=== PATIENT | male | born 1955 | race Caucasian/White ===

== ENCOUNTER 2018-11-02 16:30 | Inpatient (IN) | payer MEDICARE, OTHER ==
[~2018-11-02] VITALS: Ht 165.1 cm; Wt 87.7 kg
[2018-11-05 18:18] VITALS: BMI 30.4
[2018-11-05] MEDS ORDERED: LISI10TA2 PO (18:18)
[2018-11-05] MEDS ORDERED: ZOLP10TA PO (18:18)
[2018-11-05] MEDS ORDERED: CRES20 PO (18:18)
[2018-11-05] MEDS ORDERED: AMLO5TAB4 PO (18:18)
[2018-11-05] MEDS ORDERED: SERT50TA PO (18:18)
[2018-11-08] VITALS (13 sets, daily range): BP systolic 96–152; BP diastolic 55–89; PULSE 62–88; RESP 16–26; Ht 165.1 cm; Wt 87.7 kg
[2018-11-08] MEDS ORDERED: GABA-526 PO (14:04)
--- NOTE | 2018-11-08 16:23 | HPN ---
Date/Time of Note Date/Time of Note DATE: 11/08/18 TIME: 16:23 Interval H&P Admission Note Pt. seen H&P reviewed: No system changes VERÓNICA SUAZO PA-C November 08, 2018 16:23
[2018-11-08] MEDS ORDERED: DIPHENHYDRAMINE 25 MG CAP PO PRN (16:30)
[2018-11-08] MEDS ORDERED: NALOXONE (0.4 MG/ML) INJ IV PRN (16:30)
[2018-11-08] MEDS ORDERED: ONDANSETRON 4 MG INJ IV PRN ×2 (16:30→17:00)
[2018-11-08] MEDS ORDERED: ZOLPIDEM 5 MG TAB PO PRN (16:30)
[2018-11-08] MEDS ORDERED: HYDROmorphONE 0.5 MG/0.5 ML SYG IV PRN (16:30)
[2018-11-08] MEDS: CEFAZOLIN 1 GM/50 ML (PMX) 50 ML IVPB SCH ×2 (16:30→23:29)
[2018-11-08] MEDS ORDERED: ACETAMINOPHEN 325 MG TAB PO PRN (16:30)
[2018-11-08] MEDS ORDERED: BISACODYL 10 MG SUPP PR PRN (16:30)
[2018-11-08] MEDS ORDERED: CYCLOBENZAPRINE 10 MG TAB PO PRN (16:30)
[2018-11-08] MEDS ORDERED: CEPASTAT LOZENGE MT PRN (16:30)
[2018-11-08] MEDS ORDERED: DIPHENHYDRAMINE 50 MG INJ IV PRN ×2 (16:30→17:00)
[2018-11-08] MEDS ORDERED: AL HYDROX/MG HYDROX/SIMETH 30 ML CUP PO PRN (16:30)
[2018-11-08] MEDS ORDERED: OXYCODONE/ACETAMINOPHEN (10/325) TAB PO PRN (16:30)
[2018-11-08] MEDS ORDERED: GELATIN SIZE 100 SPONGE ONE (16:39)
[2018-11-08] MEDS ORDERED: THROMBIN 5000 UNIT VIAL ONE (16:39)
[2018-11-08] MEDS ORDERED: POLYMYXIN/BACITRACIN 1L IRRIG ONE (16:39)
[2018-11-08] MEDS ORDERED: CA CHLORIDE 10% 10 ML SYRINGE ONE (16:39)
[2018-11-08] MEDS ORDERED: HEPARIN 1000 UNITS/ML 10 ML INJ ONE (16:39)
[2018-11-08] MEDS ORDERED: BUPIVACAINE 0.25%/EPI (SDV) 30 ML INJ ONE (16:39)
--- NOTE | 2018-11-08 16:54 | PREAC ---
Date/Time of Note Date/Time of Note DATE: 11/08/18 TIME: 16:52 Anesthesia Eval and Record Evaluation Time Pre-Procedure Interview DATE: 11/08/18 TIME: 16:52 Age 62 Sex male NPO: 8 hrs Preoperative diagnosis Rt L4-L5 radiculopathy Planned procedure L4-L5 Decompression Past Medical History Past Medical History: Includes Cardio: HTN, Dyslipidemia GI: Morbid obesity Surgery & Anesthesia Issues No known issue Meds Anticoagulation: No Beta Negar within 24 hr: No Reason Beta Negar not given: Pt. not on B-Negar Reported Medications Gabapentin* (Gabapentin*) 600 Mg Tablet, 600 MG PO QHS, #60 TAB 11/08/18 Zolpidem Tartrate* (Ambien*) 10 Mg Tablet, 15 MG PO QHS PRN for INSOMNIA, TAB 11/05/18 Sertraline Hcl* (Zoloft*) 50 Mg Tablet, 75 MG PO DAILY, #30 TAB 11/05/18 Rosuvastatin Calcium* (Crestor*) 20 Mg Tablet, 20 MG PO QHS, #30 TAB 11/05/18 Lisinopril* (Lisinopril*) 10 Mg Tablet, 10 MG PO QHS, #30 TAB 11/05/18 Amlodipine Besylate* (Norvasc*) 5 Mg Tablet, 5 MG PO QHS, TAB 11/05/18 Current Medications Potassium Chloride/Dextrose/ Sod Cl 1,000 ml @ 100 mls/hr Q10H IV ; Start 11/08/18 at 16:23 Oxycodone/ Acetaminophen (Endocet (10/ 325)) 1 tab Q4H PRN PO .PAIN 5-10; Start 11/08/18 at 16:30 Oxycodone/ Acetaminophen (Endocet (10/ 325)) 2 tab Q4H PRN PO .PAIN 6-10; S tart 11/08/18 at 16:30 Hydromorphone HCl (Dilaudid) 0.2 mg Q1H PRN IV .BREAKTHROUGH PAIN; Start 11/08/18 at 16:30 Cefazolin Sodium 50 ml @ 100 mls/hr Q8H IVPB ; Start 11/08/18 at 16:30; Stop 11/09/18 at 08:59 Zolpidem Tartrate (Ambien) 10 mg HS PRN PO .INSOMNIA; Start 11/08/18 at 16:30 Ondansetron HCl (Zofran Inj) 4 mg Q6H PRN IV NAUSEA/VOMITING; Start 11/08/18 at 16:30 Bisacodyl (Dulcolax Supp) 10 mg DAILY PRN [place] .CONSTIPATION; Start 11/08/18 at 16:30 Docusate Sodium (Colace) 100 mg BID PO ; Start 11/08/18 at 21:00 Al Hydrox/Mg Hydrox/Simethicone (Mag-Al Plus) 15 ml Q6H PRN PO .CONSTIPATION/DYSPEPSIA; Start 11/08/18 at 16:30 Acetaminophen (Tylenol Tab) 650 mg Q4H PRN PO MCGOVERN OR TEMP GREATER THAN 101.3F; Start 11/08/18 at 16:30 Cyclobenzaprine HCl (Flexeril) 10 mg TID PRN PO .MUSCLE SPASMS; Start 11/08/18 at 16:30 Phenol (Cepastat Lozenge) 1 lozenge PRN PRN [place] .SORE THROAT; Start 11/08/18 at 16:30 Diphenhydramine HCl (Benadryl) 25 mg Q6H PRN PO .ITCHING; Start 11/08/18 at 16:30 Diphenhydramine HCl (Benadryl) 25 mg Q6H PRN IV .ITCHING; Start 11/08/18 at 16:30 Naloxone HCl (Narcan) 0.2 mg Q2M PRN IV .RR 8 BREATHS/MIN OR LESS; Start 11/08/18 at 16:30 Hydromorphone HCl (Dilaudid LAST INSERTER) LAST INSERTER to be started in PACU Q4PCA IV ; Start 11/08/18 at 16:30 Miscellaneous Information 1. Hold LAST INSERTER at 1,000... LAST INSERTER IV ; Start 11/08/18 at 16:30 Gabapentin (Neurontin) 600 mg HS PO ; Start 11/08/18 at 21:00 Meds reviewed: Yes Allergies Coded Allergies: No Known Allergy (Unverified , 11/08/18) Allergies Reviewed: Yes Labs/Studies Labs Reviewed: Reviewed by anesthesiologist test: N/A Studies: ECG Pre-procedure Exam Last vitals Vital Signs Date Temp Pulse Resp B/P (MAP) Pulse Ox O2 O2 Flow FiO2 Time Delivery Rate 11/08/18 97.8 62 16 114/84 94 Room Air 14:51 (94) Airway: Adequate mouth opening, Adequate thyromental dist Mallampati: Mallampati II Teeth: Normal Lung: Normal Heart: Normal ASA Physical Status ASA physical status: 3 Emergency: None Planned Anesthetic General/MAC: ETT Planned Pain Management Parenteral pain med Pre-operative Attestations Prior to commencing anesthesia and surgery, the patient was re-evaluated, there was verification of: *The patient's identity *The results of appropriate recent lab work and preoperative vital signs *The above evaluation not changing prior to induction *Anesthetic plan, risk benefits, alternative and complications discussed with patient/family; questions answered; patient/family understands, accepts and wishes to proceed. ZARIA ALFARO MD November 08, 2018 16:54
[2018-11-08] MEDS ORDERED: LABETALOL HCL 20MG INJ IV PRN (17:00)
[2018-11-08] MEDS ORDERED: FENTAnyl 50 MCG/ML VIAL IV PRN (17:00)
[2018-11-08] MEDS ORDERED: METOCLOPRAMIDE 10 MG INJ IV PRN (17:00)
[2018-11-08] MEDS ORDERED: MEPERIDINE 25 MG INJ IV PRN (17:00)
[2018-11-08] MEDS ORDERED: hydrALAzine 20 MG INJ IV PRN (17:00)
[2018-11-08] MEDS ORDERED: LIDOCAINE 2% (SDV) 5 ML INJ ONE (17:00)
[2018-11-08] MEDS ORDERED: ROCURONIUM 50 MG INJ ONE ×2 (17:00→19:07)
[2018-11-08] MEDS ORDERED: HYDROmorphONE 1 MG/5 ML IV SYRINGE IV PRN (17:00)
[2018-11-08] MEDS ORDERED: MIDAZOLAM 1 MG/ML 2 ML INJ ONE (17:07)
[2018-11-08] MEDS ORDERED: GLYCOPYRROLATE 0.4 MG INJ ONE (19:07)
[2018-11-08] MEDS ORDERED: NEOSTIGMINE 3 MG/3 ML SYRINGE ONE (19:07)
[2018-11-08] MEDS ORDERED: ETOMIDATE 20 MG INJ ONE (19:07)
[2018-11-08] MEDS ORDERED: PROPOFOL 20 ML ONE (19:07)
[2018-11-08] MEDS ORDERED: CEFAZOLIN 1 GM INJ ONE (19:08)
--- NOTE | 2018-11-08 19:14 | SIPON ---
Date/Time of Note Date/Time of Note DATE: 11/08/18 TIME: 19:13 Operative Report Preoperative Diagnosis Right L4-5 disc herniation Postoperative Diagnosis Right L4-5 disc herniation Operation/Procedure Performed Right L4-5 discectomy Surgeon see signature line food trades assistants Bibiana Umaña Anesthesia: general Estimated blood loss: 10 - 50 ml's Transfusion Required none Specimen Disc Grafts/Implants none Complications none MELINA FRASER MD November 08, 2018 19:14
--- NOTE | 2018-11-08 19:32 | PAC ---
Date/Time of Note Date/Time of Note DATE: 11/08/18 TIME: 19:30 Post-Anesthesia Notes Post-Anesthesia Note Last documented vital signs Vital Signs Date Temp Pulse Resp B/P (MAP) Pulse Ox O2 O2 Flow FiO2 Time Delivery Rate 11/08/18 98.8 19:27 11/08/18 62 16 114/84 94 Room Air 14:51 (94) Activity: WNL Respiratory function: WNL Cardiovascular function: WNL Mental status: Baseline Pain reasonably controlled: Yes Hydration appropriate: Yes Nausea/Vomiting absent: Yes Comments BP:112/56, P:88, Spo2:100%, T:98,8 ZARIA ALFARO MD November 08, 2018 19:32
[2018-11-08] MEDS: HYDROmorphONE 0.2 MG/ML PCA IV SCH (19:37)
[2018-11-08] MEDS: HYDROmorphONE 1 MG/5 ML IV SYRINGE IV PRN ×2 (19:39→19:54)
--- NOTE | 2018-11-08 20:12 | OPR ---
DATE OF OPERATION: 11/08/2018 PREOPERATIVE DIAGNOSES: Right L4 to L5 disk herniation with inferior migration, radiculopathy. POSTOPERATIVE DIAGNOSES: Right L4 to L5 disk herniation with inferior migration, radiculopathy. PROCEDURES: 1. Right L4 to L5 hemilaminotomy, partial medial facetectomy, foraminotomy. 2. Right L4 to L5 lumbar microdiskectomy. 3. Use of C-arm fluoroscopy with interpretation without radiologist present. 4. Use of operative microscope. 5. Intraoperative neuromonitoring. PRIMARY SURGEON: Farzad Renner MD TEACHER EDUCATION DIRECTOR: Bibiana Umaña PA-C NEED FOR SLIVER FORMER: During this spinal surgical procedure, my printer assistant was used to retract and protect the spinal nerves and dural sac. My printer assistant also employed the suction catheters to ev acuate blood from the surgical field to improve visualization of the neural structures. The assistan t was medically necessary to facilitate the completion of the surgery in a safe and expeditious [facility] r. [facility] regulations, as well as hospital bylaws, preclude the use of non-licensed the [facility] care personnel, such as operating room technicians, to perform these functions. FINDINGS: Neuromonitoring at the start of the case revealed right L5 amplitude down 60%. At the end of the case, nerve signals returned to normal. ESTIMATED BLOOD LOSS: 30 mL. DRAINS: None. SPECIMENS: L4 to L5 disk. COMPLICATIONS OF PROCEDURES: None. ANESTHESIOLOGIST: Ambrocio Suárez MD TYPE OF ANESTHESIA: General. INDICATIONS FOR PROCEDURE: This is a 62-year-old gentleman with right lumbar radiculopathy in settin g of an extruded fragment at L4 to L5 with inferior migration. He failed nonoperative measures; ther efore, I recommended that he undergo the above procedure. Preoperatively, we discussed risks, benefi ts and alternatives. He understood and wished to proceed. DESCRIPTION OF PROCEDURE IN DETAIL: The patient was identified in the preoperative holding area, giv en Ancef antibiotic, taken to the operating room, where he was successfully placed under general anes thesia. Neuromonitoring leads were placed. Sequential compressive devices were applied. Remote int raoperative neuromonitoring was performed by Dr. Vasquez from 17:00 until 1914 to include SSEP, MEP and EMG performed by [place]. The patient was placed on the operating table in supine posi tion over a Chris frame. All bony prominences were well padded. The back was then prepped and drap ed in usual sterile fashion. Using the sterile fluoroscope, I identified the incision sites. I anes thetized skin and subcutaneous tissue with Marcaine and epinephrine. Incision was then made over the L4 to L5 level. Incision was taken down to dorsal fascia, which was incised with Bovie cautery. I then subperiosteally dissected the L4 and L5 lamina. Gely retractor was placed. Kerrison was plac ed under the L4 lamina and repeat lateral films were obtained to confirm the correct levels. Once th is was confirmed, microscope was brought in and a right-sided hemilaminotomy was performed at L4. Pa rtial medial facetectomy of was performed at the L4 to L5 level. Given the herniation that extended distally, I then made a hemilaminotomy on the superior half of L5. I then removed the ligamentum fla vum. I then identified the L5 nerve root. I decompressed this from its origin all the way distal to the pedicle of L5 in order to fully free the nerve root. This was beyond what was required in order for a standard microdiskectomy and added at least 30 minutes to the procedure. Once this was done, I had my printer assistant retract the L5 nerve root underneath which I saw pieces of extruded fragment which were removed. I then spent time within the axilla confirming that there were no extruded fragments within the axilla. After several minutes in this area, I felt that I had adequately decompressed the entire nerve root. Hemostasis was achieved with bipolar cautery, Gelfoam and thrombin. I then iden tified the disk space. I used a [place]. I was able to find the inferior hole in the anulus throug h which I entered the disk space, removing free fragments of disk. Once this was done, all the nerve signals returned to normal. I irrigated the disk space and the wound. Valsalva was performed and t here was no leak of CSF. Hemostasis was achieved. The wound was dry. I injected PPP and thrombin, removed the retractors and closed deep fascia with #1 Vicryl suture, closed subcutaneous tissue with a 2-0 Vicryl suture, 4-0 Monocryl closure was then performed. Dermabond was then applied. The patie nt was then awakened from anesthesia and taken to the recovery room in stable condition. Lap, sponge and instrument counts were correct x2. There were no apparent complications during the procedure. The patient will be admitted to the orthopedic san for routine postoperative care to include pain co ntrol, neurovascular checks, antibiotics and physical therapy. Dictated By: FARZAD RENNER MD BB/NTS Conf#: [id number] DID#: [id number] CC: JUAN LAUREANO MD;*[facility]*
[2018-11-08] MEDS ORDERED: GABAPENTIN 300 MG CAP PO SCH (21:00)
[2018-11-08] MEDS: DOCUSATE SODIUM 100 MG CAP PO SCH (21:32)
[2018-11-08] MEDS: D5W-0.45 NACL + KCL 20 MEQ 1,000 ML IV SCH (23:26)
[2018-11-09] VITALS: BP 105/62; PULSE 81; RESP 18
[2018-11-09] MEDS: HYDROmorphONE 0.2 MG/ML PCA IV SCH ×2 (00:24→04:56)
[2018-11-09] MEDS: D5W-0.45 NACL + KCL 20 MEQ 1,000 ML IV SCH ×2 (02:23→12:23)
--- NOTE | 2018-11-09 08:16 | CONS ---
Assessment/Plan Assessment/Plan Assessment/Plan (Daily) Post op med consult dictated 1-Post op lumbar back surgery 2-HBP 3-Elev chol 4-Mood disorder Will follow Consultation Date/Type/Reason Admit Date/Time November 08, 2018 at 14:08 Date/Time of Note DATE: 11/09/18 TIME: 08:15 Past Medical History Home Meds Reported Medications Gabapentin* (Gabapentin*) 600 Mg Tablet, 600 MG PO QHS, #60 TAB 11/08/18 Zolpidem Tartrate* (Ambien*) 10 Mg Tablet, 15 MG PO QHS PRN for INSOMNIA, TAB 11/05/18 Sertraline Hcl* (Zoloft*) 50 Mg Tablet, 75 MG PO DAILY, #30 TAB 11/05/18 Rosuvastatin Calcium* (Crestor*) 20 Mg Tablet, 20 MG PO QHS, #30 TAB 11/05/18 Lisinopril* (Lisinopril*) 10 Mg Tablet, 10 MG PO QHS, #30 TAB 11/05/18 Amlodipine Besylate* (Norvasc*) 5 Mg Tablet, 5 MG PO QHS, TAB 11/05/18 Medications Current Medications Potassium Chloride/Dextrose/ Sod Cl 1,000 ml @ 100 mls/hr Q10H IV Last administered on 11/08/18at 23:26; Admin Dose 100 MLS/HR; Start 11/08/18 at 16:23 Oxycodone/ Acetaminophen (Endocet (10/ 325)) 1 tab Q4H PRN PO .PAIN 5-10; Start 11/08/18 at 16:30 Oxycodone/ Acetaminophen (Endocet (10/ 325)) 2 tab Q4H PRN PO .PAIN 6-10; Start 11/08/18 at 16:30 Hydromorphone HCl (Dilaudid) 0.2 mg Q1H PRN IV .BREAKTHROUGH PAIN; Start 11/08/18 at 16:30 Cefazolin Sodium 50 ml @ 100 mls/hr Q8H IVPB Last administered on 11/08/18at 23:29; Admin Dose 100 MLS/HR; Start 11/08/18 at 16:30; Stop 11/09/18 at 08:59 Zolpidem Tartrate (Ambien) 10 mg HS PRN PO .INSOMNIA Last administered on 11/08/18at 23:16; Admin Dose 10 MG; Start 11/08/18 at 16:30 Ondansetron HCl (Zofran Inj) 4 mg Q6H PRN IV NAUSEA/VOMITING; Start 11/08/18 at 16:30 Bisacodyl (Dulcolax Supp) 10 mg DAILY PRN [place] .CONSTIPATION; Start 11/08/18 at 16:30 Docusate Sodium (Colace) 100 mg BID PO Last administered on 11/08/18at 21:32; Admin Dose 100 MG; Start 11/08/18 at 21:00 Al Hydrox/Mg Hydrox/Simethicone (Mag-Al Plus) 15 ml Q6H PRN PO .CONSTIPATION/DYSPEPSIA; Start 11/08/18 at 16:30 Acetaminophen (Tylenol Tab) 650 mg Q4H PRN PO MCGOVERN OR TEMP GREATER THAN 101.3F; Start 11/08/18 at 16:30 Cyclobenzaprine HCl (Flexeril) 10 mg TID PRN PO .MUSCLE SPASMS Last administered on 11/08/18at 21:32; Admin Dose 10 MG; Start 11/08/18 at 16:30 Phenol (Cepastat Lozenge) 1 lozenge PRN PRN [place] .SORE THROAT; Start 11/08/18 at 16:30 Diphenhydramine HCl (Benadryl) 25 mg Q6H PRN PO .ITCHING; Start 11/08/18 at 16:30 Diphenhydramine HCl (Benadryl) 25 mg Q6H PRN IV .ITCHING; Start 11/08/18 at 16:30 Naloxone HCl (Narcan) 0.2 mg Q2M PRN IV .RR 8 BREATHS/MIN OR LESS; Start 11/08/18 at 16:30 Hydromorphone HCl (Dilaudid PHYSICAL THERAPIST CENTER MANAGER) PHYSICAL THERAPIST CENTER MANAGER to be started in PACU Q4PCA IV Last admi nistered on 11/09/18at 04:56; Admin Dose 6 MG; Start 11/08/18 at 16:30 Miscellaneous Information 1. Hold PHYSICAL THERAPIST CENTER MANAGER at 1,000... PHYSICAL THERAPIST CENTER MANAGER IV ; Start 11/08/18 at 16:30 Gabapentin (Neurontin) 600 mg HS PO Last administered on 11/08/18at 21:32; Admin Dose 600 MG; Start 5/20/19 at 21:00 Allergies: Coded Allergies: No Known Allergy (Unverified , 11/08/18) Social History Smoking Status: Current every day smoker Exam/Review of Systems Exam Vitals Vital Signs Date Temp Pulse Resp B/P (MAP) Pulse Ox O2 O2 Flow FiO2 Time Delivery Rate 11/09/18 18 05:00 11/09/18 98.2 81 105/62 94 Nasal 00:00 (76) Cannula 11/08/18 2.0 23:00 Intake and Output 11/08/18 11/08/18 11/09/18 1515:00 23:00 07:00 IntakeIntake Total 1200 ml 1175 ml OutputOutput Total 20 ml 700 ml BalanceBalance 1180 ml 475 ml Results Result Diagram: 11/09/181 11/09/181 Results 24hrs Laboratory Tests Test 11/09/18 04:41 White Blood Count 6.6 Red Blood Count 3.97 L Hemoglobin 12.3 L Hematocrit 37.7 L Mean Corpuscular Volume 95.0 Mean Corpuscular Hemoglobin 31.0 Mean Corpuscular Hemoglobin Concent 32.6 Red Cell Distribution Width 13.3 Platelet Count 177 Mean Platelet Volume 9.3 Immature Granulocytes % 0.300 Neutrophils % 65.2 Lymphocytes % 22.8 Monocytes % 10.4 Eosinophils % 0.8 Basophils % 0.5 Nucleated Red Blood Cells % 0.0 Immature Granulocytes # 0.020 Neutrophils # 4.3 Lymphocytes # 1.5 Monocytes # 0.7 Eosinophils # 0.1 Basophils # 0.0 Nucleated Red Blood Cells # 0.0 Sodium Level 139 Potassium Level 4.1 Chloride Level 102 Carbon Dioxide Level 30 Anion Gap 7 Blood Urea Nitrogen 11 Creatinine 0.77 Est Glomerular Filtrat Rate mL/min > 60 Glucose Level 112 Calcium Level 8.1 L Magnesium Level 2.1 Medications Medication Current Medications Potassium Chloride/Dextrose/ Sod Cl 1,000 ml @ 100 mls/hr Q10H IV Last administered on 11/08/18at 23:26; Admin Dose 100 MLS/HR; Start 11/08/18 at 16:23 Oxycodone/ Acetaminophen (Endocet (10/ 325)) 1 tab Q4H PRN PO .PAIN 5-10; Start 11/08/18 at 16:30 Oxycodone/ Acetaminophen (Endocet (10/ 325)) 2 tab Q4H PRN PO .PAIN 6-10; Start 11/08/18 at 16:30 Hydromorphone HCl (Dilaudid) 0.2 mg Q1H PRN IV .BREAKTHROUGH PAIN; Start 11/08/18 at 16:30 Cefazolin Sodium 50 ml @ 100 mls/hr Q8H IVPB Last administered on 11/08/18at 23:29; Admin Dose 100 MLS/HR; Start 11/08/18 at 16:30; Stop 11/09/18 at 08:59 Zolpidem Tartrate (Ambien) 10 mg HS PRN PO .INSOMNIA Last administered on 11/08/18at 23:16; Admin Dose 10 MG; Start 11/08/18 at 16:30 Ondansetron HCl (Zofran Inj) 4 mg Q6H PRN IV NAUSEA/VOMITING; Start 11/08/18 at 16:30 Bisacodyl (Dulcolax Supp) 10 mg DAILY PRN [place] .CONSTIPATION; Start 11/08/18 at 16:30 Docusate Sodium (Colace) 100 mg BID PO Last administered on 11/08/18at 21:32; Admin Dose 100 MG; Start 11/08/18 at 21:00 Al Hydrox/Mg Hydrox/Simethicone (Mag-Al Plus) 15 ml Q6H PRN PO .CONSTIPATION/DYSPEPSIA; Start 11/08/18 at 16:30 Acetaminophen (Tylenol Tab) 650 mg Q4H PRN PO MCGOVERN OR TEMP GREATER THAN 101.3F; Start 11/08/18 at 16:30 Cyclobenzaprine HCl (Flexeril) 10 mg TID PRN PO .MUSCLE SPASMS Last administered on 11/08/18at 21:32; Admin Dose 10 MG; Start 11/08/18 at 16:30 Phenol (Cepastat Lozenge) 1 lozenge PRN PRN [place] .SORE THROAT; Start 11/08/18 at 16:30 Diphenhydramine HCl (Benadryl) 25 mg Q6H PRN PO .ITCHING; Start 11/08/18 at 16:30 Diphenhydramine HCl (Benadryl) 25 mg Q6H PRN IV .ITCHING; Start 11/08/18 at 16:30 Naloxone HCl (Narcan) 0.2 mg Q2M PRN IV .RR 8 BREATHS/MIN OR LESS; Start 11/08/18 at 16:30 Hydromorphone HCl (Dilaudid PHYSICAL THERAPIST CENTER MANAGER) PHYSICAL THERAPIST CENTER MANAGER to be started in PACU Q4PCA IV Last administered on 11/09/18at 04:56; Admin Dose 6 MG; Start 11/08/18 at 16:30 Miscellaneous Information 1. Hold PHYSICAL THERAPIST CENTER MANAGER at 1,000... PHYSICAL THERAPIST CENTER MANAGER IV ; Start 11/08/18 at 16:30 Gabapentin (Neurontin) 600 mg HS PO Last administered on 11/08/18at 21:32; Admin Dose 600 MG; Start 11/08/18 at 21:00 JUAN LAUREANO MD November 09, 2018 08:16
[2018-11-09 08:30] VITALS: BP 108/56; PULSE 73; RESP 18
[2018-11-09] MEDS: DOCUSATE SODIUM 100 MG CAP PO SCH (08:36)
[2018-11-09] MEDS: CEFAZOLIN 1 GM/50 ML (PMX) 50 ML IVPB SCH (08:36)
[2018-11-09] MEDS: OXYCODONE/ACETAMINOPHEN (10/325) TAB PO PRN ×2 (08:52→10:21)
--- NOTE | 2018-11-09 08:58 | CONS ---
DATE OF ADMISSION: 11/08/2018 DATE OF CONSULTATION: 11/09/[address] Renner: Thank you very much for allowing me to evaluate this 62-year-old male, who underwent lumbar back surg arline. HISTORICAL EVENTS: As you well know, this patient had been suffering with low back pain and radicula r right leg pain and because of conservative efforts that provided no significant relief, elected to proceed with surgery. Postoperatively, he is reasonably comfortable noting some discomfort involving the mid low back, improvement in his right leg radicular pain and denies cough, wheezing, shortness of breath, nausea, vomiting, abdominal or chest pain. PAST MEDICAL HISTORY: 1. Hypertension. 2. Hyperlipidemia. 3. No history of coronary artery disease, having had a treadmill about 5 years ago. 4. No history of diabetes. 5. No history of peptic ulcer disease or phlebitis. FAMILY HISTORY: To be reviewed later. MEDICATIONS: Prior to admission include: 1. Amlodipine 5 mg per day. 2. Gabapentin 600 mg per day. 3. Lisinopril 10 mg per day. 4. Crestor 20 mg per day. 5. Zoloft 50 mg per day. 6. Ambien 10 mg at bedtime. PHYSICAL EXAMINATION: GENERAL: [place] male, in no acute distress. VITAL SIGNS: Blood pressure 118/72, pulse 72, respirations were 18 mmHg, afebrile. EYES: Extraocular muscles were full. NOSE, MOUTH, AND THROAT: Normal. NECK: Supple. There was no jugular venous distention, thyroid enlargement or adenopathy. LUNGS: Clear. HEART: Rhythm regular, no murmur. ABDOMEN: Nontender. Liver and spleen were not palpable. No mass or tenderness was noted. EXTREMITIES: No edema, no calf tenderness. NEUROLOGIC: No lateralizing motor weakness. IMPRESSION AND PLAN: 1. Stable postop lumbar back surgery. 2. History of hypertension. We will resume blood pressure medications. 3. Hyperlipidemia without coronary disease. Statin to be continued. 4. Mood disorder. Zoloft to be continued. 5. We will follow daily and observe for signs and symptoms of thromboembolic disease. Dictated By: JUAN LAUREANO MD MR/NTS Conf#: [id number] DID#: [id number] CC: MELINA RENNER MD; JUAN LAUREANO MD;*[facility]*
[2018-11-09] MEDS ORDERED: SERTRALINE 50 MG TAB PO SCH (09:00)
--- NOTE | 2018-11-09 10:46 | DS ---
Date/Time of Note Date/Time of Note DATE: 11/09/18 TIME: 10:45 Discharge Summary Admission/Discharge Info Admit Date/Time November 08, 2018 at 14:08 Discharge Date/Time November 09 Discharge Diagnosis Lumbar discectomy Patient Condition: Good Procedures Lumbar discectomy Hospital Course Patient was admitted to the orthopedic san after undergoing a lumbar discectomy. His postoperative course was uncomplicated. By postoperative day 1 he was deemed stable for discharge with follow-up arranged with the undersigned Home Meds Reported Medications Gabapentin* (Gabapentin*) 600 Mg Tablet, 600 MG PO QHS, #60 TAB 11/08/18 Zolpidem Tartrate* (Ambien*) 10 Mg Tablet, 15 MG PO QHS PRN for INSOMNIA, TAB 11/05/18 Sertraline Hcl* (Zoloft*) 50 Mg Tablet, 75 MG PO DAILY, #30 TAB 11/05/18 Rosuvastatin Calcium* (Crestor*) 20 Mg Tablet, 20 MG PO QHS, #30 TAB 11/05/18 Lisinopril* (Lisinopril*) 10 Mg Tablet, 10 MG PO QHS, #30 TAB 11/05/18 Amlodipine Besylate* (Norvasc*) 5 Mg Tablet, 5 MG PO QHS, TAB 11/05/18 Primary Care Provider Not On Staff Doctor Pending Labs Laboratory Tests Test 11/09/18 04:41 11/09/18 08:17 White Blood Count 6.6 10^3/ul (4.8-10.8) Red Blood Count 3.97 10^6/ul (4.70-6.10) Hemoglobin 12.3 g/dl (14.0-18.0) Hematocrit 37.7 % (42.0-52.0) Mean Corpuscular Volume 95.0 fl (82.0-101.0) Mean Corpuscular Hemoglobin 31.0 pg (29.0-33.0) Mean Corpuscular 32.6 g/dl (32.0-37.0) Hemoglobin Concent Red Cell Distribution Width 13.3 % (11.5-14.5) Platelet Count 177 10^3/UL (140-415) Mean Platelet Volume 9.3 fl (7.4-10.4) Immature Granulocytes % 0.300 % (0.001-0.429) Neutrophils % 65.2 % (39.0-77.0) Lymphocytes % 22.8 % (15.0-51.0) Monocytes % 10.4 % (0.0-11.0) Eosinophils % 0.8 % (0.0-7.0) Basophils % 0.5 % (0.0-2.0) Nucleated Red Blood Cells % 0.0 /100WBC (0.0-0.0) Immature Granulocytes # 0.020 10^3/ul (0.0-0.031) Neutrophils # 4.3 10^3/ul (1.6-7.5) Lymphocytes # 1.5 10^3/ul (0.8-2.9) Monocytes # 0.7 10^3/ul (0.3-0.9) Eosinophils # 0.1 10^3/ul (0.0-0.5) Basophils # 0.0 10^3/ul (0.0-0.1) Nucleated Red Blood Cells # 0.0 10^3/ul (0.0-0.0) Sodium Level 139 mmol/L (135-144) Potassium Level 4.1 mmol/L (3.5-5.1) Chloride Level 102 mmol/L (97-110) Carbon Dioxide Level 30 mmol/L (21-31) Anion Gap 7 (5-13) Blood Urea Nitrogen 11 mg/dl (7-20) Creatinine 0.77 mg/dl (0.61-1.24) Est Glomerular Filtrat > 60 mL/min (>60) Rate mL/min Glucose Level 112 mg/dl (70-220) Calcium Level 8.1 mg/dl (8.4-10.2) Magnesium Level 2.1 mg/dl (1.7-2.5) Lab Scanned Report REFERENCE LAB [id number] MELINA FRASER MD November 09, 2018 10:46
[2018-11-09] MEDS ORDERED: ATORVASTATIN 80 MG TAB PO SCH (21:00)
[2018-11-09] MEDS ORDERED: LISINOPRIL 10 MG TAB PO SCH (21:00)
[2018-11-09] MEDS ORDERED: GABAPENTIN 300 MG CAP PO SCH (21:00)
[2018-11-09] MEDS ORDERED: AMLODIPINE 5 MG TAB PO SCH (21:00)
== END 2018-11-09 12:55 | disposition home or self-care (01) | DRG 520 ==
LOC: REC 11-08 14:08 → MS1 11-08 20:35
PROVIDERS: ADMIT Specialist; ATTEND Specialist
PROC: 01NB0ZZ Release Lumbar Nerve, Open Approach (ICD-10-PCS; 2018-11-08)
PROC: 4A11X4G Monitoring of Peripheral Nervous Electrical Activity, Intraoperative, External Approach (ICD-10-PCS; 2018-11-08)
PROC: 0SB20ZZ Excision of Lumbar Vertebral Disc, Open Approach (ICD-10-PCS; principal; 2018-11-08 16:30)
DX: M51.16 Intervertebral disc disorders with radiculopathy, lumbar region (principal); I10 Essential (primary) hypertension; E78.5 Hyperlipidemia, unspecified; E78.00 Pure hypercholesterolemia, unspecified; F39 Unspecified mood [affective] disorder; F17.200 Nicotine dependence, unspecified, uncomplicated
CPT/HCPCS: 72100; 80048; 83735; 85025; 86999; 88304; 97116; 97161; J0690; J1170; J1644; J2175; J2250; J2405; J2710; J3010; J3480